=== PATIENT | female | born 1995 | race Native Hawaiian/Other Pacific Islander ===

== ENCOUNTER 2021-10-19 08:00 | Outpatient (CLI) | payer OTHER ==
--- NOTE | 2021-10-19 10:38 | XRAY Report ---
PROCEDURE: Chest 2 View X-Ray INDICATIONS: RIB PX TECHNIQUE: 2 view(s) of the chest. COMPARISON: None. FINDINGS: Surgical changes and devices: None. Lungs and pleura: No pleural effusions or pneumothorax. Lungs are clear. Mediastinum: Mediastinal contours are normal. Heart size is normal. Bones and chest wall: No suspicious bony abnormalities. Soft tissues appear unremarkable. IMPRESSION: No acute cardiopulmonary abnormality Reviewed by: Burak De Paz on 10/19/2021 10:36 AM PDT Approved by: Burak De Paz on 10/19/2021 10:36 AM PDT Station ID: [id number]
== END 2021-10-19 23:59 | disposition home or self-care (01) ==
LOC: DI.N 08:00
PROVIDERS: ATTEND Physician Assistant
DX: R07.81 Pleurodynia (principal)

== ENCOUNTER 2022-01-25 12:51 | Emergency (ER) | payer OTHER ==
[2022-01-25] MEDS ORDERED: METOCLOPRAMIDE 10 MG/2 ML VIAL IVP STA (13:13)
[2022-01-25] MEDS ORDERED: KETOROLAC 15 MG/ML VIAL IVP STA (13:14)
[2022-01-25] MEDS ORDERED: diphenhydrAMINE INJ 50 MG/ML VIAL IVP STA (13:14)
--- NOTE | 2022-01-25 13:16 | ED Physician Documentation ---
PD HPI HEADACHE - Stated complaint Stated Complaint: MIGRANE - Chief complaint Chief Complaint: Neuro - History obtained from History obtained from: Patient - Additional information Additional information: Previously healthy 26-year-old woman has been nauseous for the last couple of weeks. She wondered if she might be but took a test that was negative. Today she was sitting at her desk about 2 and half hours ago doing desk work and developed a gradual onset headache. She states it feels like her head was expanding within her skull. It is associated with light sensitivity, nausea and 1 episode of vomiting. It was gradual in onset over about an hour. She is never had a headache like this before no prior history of migraines. She denies fevers, chills, neck stiffness. Review of Systems Constitutional: denies: Fever, Chills Nose: reports: Reviewed and negative Throat: reports: Reviewed and negative Cardiac: reports: Reviewed and negative PD PAST MEDICAL HISTORY - Present Medications Home Medications: Ambulatory Orders Medication Instructions Recorded Confirmed SUMAtriptan [Imitrex] 25 mg PO BID PRN #10 tablet 01/25/22 - Allergies Allergies/Adverse Reactions: Allergies Allergy/AdvReac Type Severity Reaction Status Date / Time No Known Drug Allergies Allergy Verified 01/25/22 13:00 PD ED PE NORMAL - Vitals Vital signs reviewed: Yes - General General: Alert and oriented X 3, Other (She appears uncomfortable and light sensitive) - HEENT HEENT: PERRL, EOMI - Neck Neck: Supple, no meningeal sign, No bony TTP - Abdomen Abdomen: Normal bowel sounds, Soft, Non tender - Neuro Neuro: Alert and oriented X 3, 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, No motor deficit, No sensory de ficit, Normal speech Eye Opening: Spontaneous Motor: Obeys Commands Verbal: Oriented GCS Score: 15 Results - Vitals Vitals: Vital Signs - 24 hr 01/25/22 13:00 Temperature 36.5 C Heart Rate 68 Respiratory 16 Rate Blood Pressure 130/84 H O2 Saturation 98 Oxygen O2 Source Room air - Labs Labs: Laboratory Tests 01/25/22 13:24 Urine Color LIGHT YELLOW Urine Clarity CLEAR Urine pH 6.0 Ur Specific [place] 1.010 Urine Protein NEGATIVE Urine Glucose (UA) NEGATIVE Urine Ketones NEGATIVE Urine Occult Blood NEGATIVE Urine Nitrite NEGATIVE Urine Bilirubin NEGATIVE Urine Urobilinogen 0.2 (NORMAL) Ur Leukocyte Esterase NEGATIVE Ur Microscopic Review NOT INDICATED Urine Culture Comments NOT INDICATED Urine HCG, Qual NEGATIVE PD MEDICAL DECISION MAKING - ED course ED course: CT of the head is unremarkable interpreted contemporaneously by me. 26-year-old woman with headache that sounds migrainous, gradual in onset not associated with infectious symptoms. After the administration of IV Toradol, Benadryl, and Reglan she felt much better, declined further pain medication. Departure - Departure Disposition: 01 Home, Self Care Clinical Impression: Migraine Qualifiers: Migraine type: without aura Status migrainosus presence: without status migrainosus Intractability: not intractable Qualified Code(s): G43.009 - Migraine without aura, not intractable, without status migrainosus Condition: Good Record reviewed to determine appropriate education?: Yes Instructions: Imitrex, ED Headache Migraine Prescriptions: SUMAtriptan [Imitrex] 25 mg PO BID PRN #10 tablet PRN Reason: Headache Comments: You are seen today for a headache that sounded migrainous, but given the lack of history of prior migraines a CT was done and was normal. You improved with a migraine cocktail which included Toradol, Benadryl, and Reglan. Follow-up with your flight surgeon, next available appointment. Return for new or worsening symptoms. I am prescribing a medication for recurrent headaches if this becomes a recurrent problem (we hope it does not). Forms: Activity restrictions
[2022-01-25 13:49] LABS: BILIRUBIN,URINE NEGATIVE (NEGATIVE); GLUCOSE, URINE (UA) NEGATIVE (NEGATIVE); KETONES,URINE (UA) NEGATIVE (NEGATIVE); LEUKOCYTE ESTERASE, URINE NEGATIVE (NEGATIVE); NITRITE,URINE NEGATIVE (NEGATIVE); OCCULT BLOOD,URINE NEGATIVE (NEGATIVE); PROTEIN,URINE NEGATIVE (NEGATIVE); UROBILINOGEN,URINE 0.2 (NORMAL) E.U./dL (NORMAL)
[2022-01-25 13:54] LABS: CLARITY,URINE CLEAR (CLEAR); HCG UR QUAL NEGATIVE
--- NOTE | 2022-01-25 14:46 | CT Report ---
PROCEDURE: HEAD WO INDICATIONS: WHOL TECHNIQUE: Noncontrast 4.5 mm thick angled axial sections acquired from the foramen magnum to the vertex. For r adiation dose reduction, the following was used: automated exposure control, adjustment of mA and/or kV according to patient size. COMPARISON: None. FINDINGS: Image quality: Excellent. CSF spaces: Basal cisterns are patent. No extra-axial fluid collections. Ventricles are normal in size and shape. Brain: No midline shift. No intracranial masses or hemorrhage. Phan-white matter interface is norm al. Skull and face: Calvarium and visualized facial bones are intact, without suspicious lesions. Sinuses: Visualized sinuses and mastoids are clear. IMPRESSION: No acute intracranial abnormality. Reviewed by: Shira Thacker MD on 01/25/2022 2:44 PM PDT Approved by: Shira Thacker MD on 01/25/2022 2:44 PM PDT Station ID: [id number]
[2022-01-25 15:05] VITALS: BP 126/82
== END 2022-01-25 15:04 | disposition home or self-care (01) ==
LOC: ED 12:51
DX: G43.009 Migraine without aura, not intractable, without status migrainosus (principal)
CPT/HCPCS: 70450; 81003; 81025; 96374; 99284; J1200; J2765; 81001; 87086

== ENCOUNTER 2022-09-03 19:51 | Emergency (ER) | payer OTHER ==
--- NOTE | 2022-09-03 20:23 | ED Physician Documentation ---
PD HPI FEMALE - Stated complaint Stated Complaint: ABD PX - Chief complaint Chief Complaint: Abd Pain - History obtained from History obtained from: Patient - History of Present Illness OB-OPAL MINER History: G (2), P (1), Prior ectopic (1) - Additional information Additional information: HPI from patient. Patient is approximately 5 weeks . Patient states that, over the past hour, she has had 2 episodes of left lower quadrant/left hemipelvic pain which she describes as a cramping. There were no inciting factors nor circumstances, no exacerbating nor ameliorating factors. The pain waxes and wanes without such influences. This is her second , the first ended with ectopic . She denies nausea, vomiting, vaginal bleeding. Review of Systems Constitutional: denies: Fever GI: reports: Abdominal Pain. denies: Abdominal Swelling, Nausea, Vomiting : reports: Now EGA (5 weeks) PD PAST MEDICAL HISTORY - Past Medical History Past Medical History: Yes GI: Crohn's disease OPAL MINER: Ectopic - Present Medications Home Medications: Ambulatory Orders Medication Instructions Recorded Confirmed Adalimumab [Humira(Cf) Pediatric 80 mg SUBQ 09/03/22 Crohn's] - Allergies Allergies/Adverse Reactions: Allergies Allergy/AdvReac Type Severity Reaction Status Date / Time No Known Drug Allergies Allergy Verified 09/03/22 19:58 PD ED PE NORMAL - Vitals Vital signs reviewed: Yes - General General: Alert and oriented X 3, No acute distress, Well developed/nourished - Cardiac Cardiac: RRR, No murmur - Respiratory Respiratory: No respiratory distress, Clear bilaterally - Abdomen Abdomen: Soft, Non tender, Non distended - Back Back: No CVA TTP Results - Vitals Vitals: Vital Signs - 24 hr 09/03/22 09/03/22 09/03/22 19:54 21:54 23:00 Temperature 37.1 C 37.0 C Heart Rate 80 80 80 Respiratory 16 16 16 Rate Blood Pressure 114/77 112/76 110/72 O2 Saturation 100 100 100 Oxygen O2 Source Room air - Labs Labs: Laboratory Tests 09/03/22 09/03/22 09/03/22 20:11 20:50 20:50 WBC 7.8 RBC 4.22 Hgb 12.8 Hct 37.7 MCV 89.3 MCH 30.3 MCHC 34.0 RDW 12.3 Plt Count 334 MPV 9.1 Neut # (Auto) 3.4 Lymph # (Auto) 3.3 [place] # (Auto) 0.6 Eos # (Auto) 0.4 Baso # (Auto) 0.0 Absolute Nucleated RBC 0.00 Nucleated RBC % 0.0 Sodium 136 Potassium 3.7 Chloride 103 Carbon Dioxide 23 Anion Gap 10.0 BUN 11 Creatinine 0.7 Estimated GFR (MDRD) 101 Glucose 91 Calcium 9.5 Total Bilirubin 0.7 AST 15 ALT 13 Alkaline Phosphatase 36 L Total Protein 7.4 Albumin 4.2 Globulin 3.2 Albumin/Globulin Ratio 1.3 Lipase 41 HCG, Quant Urine Color YELLOW Urine Clarity CLEAR Urine pH 6.0 Ur Specific [place] 1.025 Urine Protein NEGATIVE Urine Glucose (UA) NEGATIVE Urine Ketones 15 H Urine Occult Blood SMALL H Urine Nitrite NEGATIVE Urine Bilirubin NEGATIVE Urine Urobilinogen 0.2 (NORMAL) Ur Leukocyte Esterase NEGATIVE Urine RBC 0-5 Urine WBC 0-3 Ur Squamous Epith Cells FEW Squamous Urine Bacteria Rare Urine Mucus Few Strands Ur Microscopic Review INDICATED Urine Culture Comments NOT INDICATED Blood Type 09/03/22 09/03/22 20:50 20:50 WBC RBC Hgb Hct MCV MCH MCHC RDW Plt Count MPV Neut # (Auto) Lymph # (Auto) [place] # (Auto) Eos # (Auto) Baso # (Auto) Absolute Nucleated RBC Nucleated RBC % Sodium Potassium Chloride Carbon Dioxide Anion Gap BUN Creatinine Estimated GFR (MDRD) Glucose Calcium Total Bilirubin AST ALT Alkaline Phosphatase Total Protein Albumin Globulin Albumin/Globulin Ratio Lipase HCG, Quant 331.42 Urine Color Urine Clarity Urine pH Ur Specific [place] Urine Protein Urine Glucose (UA) Urine Ketones Urine Occult Blood Urine Nitrite Urine Bilirubin Urine Urobilinogen Ur Leukocyte Esterase Urine RBC Urine WBC Ur Squamous Epith Cells Urine Bacteria Urine Mucus Ur Microscopic Review Urine Culture Comments Blood Type O POSITIVE - Rads (name of study) first trimester US Relevant Findings:: Prelim report reviewed, See rad report PD Medical Decision Making - ED course Complexity details: reviewed results, re-evaluated patient, considered differential, d/w patient ED course: Patient's quantitative hCG is only 331. The pelvic ultrasound is interpreted by the radiologist as " of unknown location. Recommend continued laboratory and sonographic follow-up". The radiologist notes "multiple left ovarian cysts. No discrete gestational sac." On reevaluation, I discussed the test results with the patient. She remains in no apparent distress. She says she is currently not having any discomfort. I discussed this case, including the blood tests and ultrasound findings, with the on-call PASSENGER VESSEL CHEF for [facility] (Dr. Henson). He recommends patient follow-up in outpatient setting, ideally have a repeat hCG quantitative in 2 days, and a repe at ultrasound in approximately 1 week. I relayed these recommendations to the patient. She says she is in the process of establishing with an PASSENGER VESSEL CHEF, she thinks a group in [place]. I provided her the information for Dr. Henson's practice, as well. Return precautions are discussed. Differential diagnosis includes, though not limited to, early normal , early ectopic . Departure - Departure Disposition: 01 Home, Self Care Clinical Impression: Pelvic pain during Condition: Good Instructions: ED Abdominal Pain Rule Out Ectopic Follow-Up: Mark Henson MD [Provider Admit Priv/Credential] - Comments: The pelvic ultrasound performed lenny did not show any evidence of . However, as we discussed, the blood test of the hormone level (hCG) was quite low; With this low of a hormone level, evidence of and ultrasound would not be expected to be seen. This presents a conundrum, and that it is still possible that the is in an ectopic location (such as in a fallopian tube). Or, of course, the might be an intrauterine (normal location for a ). I discussed your case with the on-call PASSENGER VESSEL CHEF (Dr. Henson). You will need some expedited follow-up for retesting in this particular scenario. Specifically, a repeat blood test for the hCG level in 2 or 3 days, and a repeat ultrasound in a week. I recommend that you contact your PASSENGER VESSEL CHEF soon as their office opens to arrange for immediate appointment; mention your ED visit as well as the recommendations that were made on this visit. Also consider contacting your primary care provider with this information, as they might feel comfortable ordering these tests themselves. You can also try to follow-up with Dr. Henson; I have provided his office information elsewhere on these discharge sheets. You should return to the emergency department at any time that you get increasing pain, or if you develop other concerning signs/symptoms, such as vaginal bleeding, fever, severe abdominal or pelvic pain. For your information/records, your blood type is O+. Lenny's HCG result was 331 Discharge Date/Time: 09/03/22 23:13
[2022-09-03 20:28] LABS: BILIRUBIN,URINE NEGATIVE (NEGATIVE); GLUCOSE, URINE (UA) NEGATIVE (NEGATIVE); KETONES,URINE (UA) 15 mg/dL (NEGATIVE); LEUKOCYTE ESTERASE, URINE NEGATIVE (NEGATIVE); NITRITE,URINE NEGATIVE (NEGATIVE); OCCULT BLOOD,URINE SMALL (NEGATIVE); PROTEIN,URINE NEGATIVE (NEGATIVE); UROBILINOGEN,URINE 0.2 (NORMAL) E.U./dL (NORMAL)
[2022-09-03 20:31] LABS: CLARITY,URINE CLEAR (CLEAR)
[2022-09-03 20:42] LABS: BACTERIA,URINE Rare /HPF (None Seen); MUCUS,URINE Few Strands; RBC,URINE 0-5 /HPF (0-5); SQUAMOUS EPITHELIAL CELL,UR FEW Squamous (<= Few); WBC,URINE 0-3 /HPF (0-5)
[2022-09-03 21:07] LABS: BASOPHILS % (AUTO) 0.5 %; EOSINOPHILS # (AUTO) 0.4 10^3/uL (0.0-0.7); EOSINOPHILS % (AUTO) 4.6 %; HCT - HEMATOCRIT 37.7 % (37.0-47.0); HGB - HEMOGLOBIN 12.8 g/dL (12.0-16.0); LYMPHOCYTES # (AUTO) 3.3 10^3/uL (1.5-3.5); LYMPHOCYTES % (AUTO) 42.4 %; MEAN CORPUSCULAR HEMOGLOBIN 30.3 pg (27.0-31.0); MEAN CORPUSCULAR VOLUME 89.3 fL (81.0-99.0); MEAN PLATELET VOLUME 9.1 fL (7.9-10.8); MONOCYTES # (AUTO) 0.6 10^3/uL (0.0-1.0); NEUTROPHILS # (AUTO) 3.4 10^3/uL (1.5-6.6); NEUTROPHILS % (AUTO) 44.2 %; PLT - PLATELET COUNT 334 10^3/uL (130-450); RED BLOOD COUNT 4.22 10^6/uL (4.20-5.40); RED CELL DISTRIBUTION WIDTH 12.3 % (12.0-15.0); WHITE BLOOD COUNT 7.8 x10^3/uL (4.8-10.8)
[2022-09-03 21:20] LABS: ALBUMIN 4.2 g/dL (3.2-5.5); ALBUMIN/GLOBULIN RATIO 1.3 (1.0-2.2); BILIRUBIN,TOTAL 0.7 mg/dL (0.2-1.0); CALCIUM 9.5 mg/dL (8.5-10.3); CREATININE 0.7 mg/dL (0.4-1.0); POTASSIUM 3.7 mmol/L (3.5-5.0); TOTAL PROTEIN 7.4 g/dL (6.7-8.2)
--- NOTE | 2022-09-03 22:25 | Ultrasound Report ---
PROCEDURE: OB First Trimester INDICATIONS: , pelvic pain OUTSIDE/PRIOR DATING DATA: Last menstrual period (LMP): 08/05/2022. LMP-based estimated date of delivery (WANDA): 05/12/2023. TECHNIQUE: Real-time scanning was performed of the fetus and maternal pelvic organs, with image documentation. COMPARISON: None FINDINGS: No pole is seen. Multiple left ovarian cysts. No discrete gestational sac. IMPRESSION: of unknown location. Recommend continued laboratory and sonographic follow-up. Reviewed by: Abel Lemos MD on 09/03/2022 10:24 PM PDT Approved by: Abel Lemos MD on 09/03/2022 10:24 PM PDT Station ID: [id number]
[2022-09-03 23:13] VITALS: BP 110/72
== END 2022-09-03 23:13 | disposition home or self-care (01) ==
LOC: ED 19:51
DX: O26.891 Other specified pregnancy related conditions, first trimester (principal); R10.2 Pelvic and perineal pain; Z3A.01 Less than 8 weeks gestation of pregnancy
CPT/HCPCS: 36415; 80053; 81001; 81003; 83690; 84702; 85025; 86900; 86901; 87086; 99283; 99284

== ENCOUNTER 2023-02-16 19:58 | Outpatient (CLI) | payer OTHER ==
[2023-02-16 20:44] VITALS: BP 113/72
--- NOTE | 2023-02-16 21:12 | PROVIDER PROGRESS NOTE ---
- HPI Chief Complaint: Decreased movement Current : presents with cramping and decreased movment. Crohn's and off Humira due to pharmacy issues. feels constipated. Passing small bloody stools. had been feeling otherwise well. does feel baby move now that she is here on the monitor. cramping was low now above uterus. also c/o some discharge. Current EDU 05/15/23 Gestation 27 Weeks and 3 Days 2 Para 0 Vital Signs Temperature 98.2 F 02/16/23 20:14 Heart Rate 94 02/16/23 20:14 Respiratory Rate 18 02/16/23 20:14 Blood Pressure 113/72 02/16/23 20:14 Temperature 98.2 F 02/16/23 20:14 Heart Rate 94 02/16/23 20:14 Respiratory Rate 18 02/16/23 20:14 Blood Pressure 113/72 02/16/23 20:14 O2 Saturation If not protocol: Oxygen Flow, liters/minute - Exam Appears well. no distress. abdomen soft. fundus not tender. a bit uncomfortable above it. extremities without edema. - Procedures OB Procedure Performed: NST Diagnosis/Indication for NST: Decreased movement NST Procedure: NST Procedure Start Date 02/16/23 Start Time 20:20 Stop Time 20:55 Vibroacoustic Stimulation Used No Patient States Movement Yes FHT reviewed. baseline 135. + acels. no decels. moderate variability. reactive. Service Date of procedure: 02/16/23 Findings: reactive nst - Plan Plan: urine sent for culture. vagina swabs sent for infection. discharge home. to see her GI doctor, Dr. Zheng tomorrow in [place]. talk with him about getting restarted on her Humira and what else she can do for cramping and to help her bowels move better. has clinic appt on Tuesday.
[2023-02-16 21:14] LABS: BILIRUBIN,URINE NEGATIVE (NEGATIVE); GLUCOSE, URINE (UA) NEGATIVE (NEGATIVE); KETONES,URINE (UA) NEGATIVE (NEGATIVE); LEUKOCYTE ESTERASE, URINE SMALL (NEGATIVE); NITRITE,URINE NEGATIVE (NEGATIVE); OCCULT BLOOD,URINE NEGATIVE (NEGATIVE); PH,URINE 6.5 PH (5.0-7.5); PROTEIN,URINE NEGATIVE (NEGATIVE); UROBILINOGEN,URINE 0.2 (NORMAL) E.U./dL (NORMAL)
[2023-02-16 21:22] LABS: BACTERIA,URINE Rare /HPF (None Seen); CLARITY,URINE HAZY (CLEAR); RBC,URINE 0-5 /HPF (0-5); SQUAMOUS EPITHELIAL CELL,UR FEW Squamous (<= Few); YEAST,URINE PRESENT
[2023-02-16 23:23] LABS: BACTERIAL VAGINOSIS DNA POSITIVE (NEGATIVE); CANDIDA GLABRATA DNA NEGATIVE (NEGATIVE); CANDIDA GROUP DNA POSITIVE (NEGATIVE); CANDIDA KRUSEI DNA NEGATIVE (NEGATIVE); TRICHOMONAS VAGINALIS DNA NEGATIVE (NEGATIVE)
[2023-02-17 00:39] LABS: CHLAMYDIA TRACHOMATIS DNA NEGATIVE (NEGATIVE); NEISSERIA GONORRHOEAE DNA NEGATIVE (NEGATIVE)
== END 2023-02-16 21:25 | disposition home or self-care (01) ==
LOC: WFO 19:58 → FBP 20:00 → WFO 21:25
PROVIDERS: ATTEND Obstetrics & Gynecology
DX: O36.8120 Decreased fetal movements, second trimester, not applicable or unspecified (principal); O99.612 Diseases of the digestive system complicating pregnancy, second trimester; K50.90 Crohn's disease, unspecified, without complications; Z3A.27 27 weeks gestation of pregnancy; K59.00 Constipation, unspecified; O99.891 Other specified diseases and conditions complicating pregnancy; R10.9 Unspecified abdominal pain
CPT/HCPCS: 59025; 81001; 81514; 87086; 87491; 87591; 87661; 99213; 99214

== ENCOUNTER 2023-02-25 08:09 | Outpatient (CLI) | payer OTHER ==
[2023-02-25 08:30] LABS: HCT - HEMATOCRIT 31.8 % (37.0-47.0); HGB - HEMOGLOBIN 10.7 g/dL (12.0-16.0); MEAN CORPUSCULAR HEMOGLOBIN 30.3 pg (27.0-31.0); MEAN CORPUSCULAR HGB CONC 33.6 g/dL (32.0-36.0); MEAN CORPUSCULAR VOLUME 90.1 fL (81.0-99.0); MEAN PLATELET VOLUME 9.8 fL (7.9-10.8); RED BLOOD COUNT 3.53 10^6/uL (4.20-5.40); RED CELL DISTRIBUTION WIDTH 13.9 % (12.0-15.0); WHITE BLOOD COUNT 11.7 x10^3/uL (4.8-10.8)
[2023-02-25 08:42] LABS: GTT GLUCOSE,FASTING 102 mg/dL (74-109)
== END 2023-02-25 08:10 | disposition home or self-care (01) ==
LOC: LAB 08:09
PROVIDERS: ATTEND Obstetrics & Gynecology
DX: O99.613 Diseases of the digestive system complicating pregnancy, third trimester (principal); K50.90 Crohn's disease, unspecified, without complications; Z3A.28 28 weeks gestation of pregnancy
CPT/HCPCS: 36415; 82951; 85027; 86850

== ENCOUNTER 2023-03-08 15:54 | Outpatient (CLI) | payer OTHER ==
--- NOTE | 2023-03-09 18:33 | Ultrasound Report ---
PROCEDURE: OB F/U or Repeat INDICATIONS: CROHNS IN OUTSIDE/PRIOR DATING DATA: Last menstrual period (LMP): 08/08/2022. LMP-based estimated date of delivery (WANDA): 05/15/2023. First dating scan (date and location): 10/13/2022. Estimated date of delivery (WANDA) from first dating scan: 05/15/2023. The below data below was generated using the ultrasound and clinical WANDA of 05/15/2023 TECHNIQUE: Real-time scanning was performed of the fetus, with image documentation and biometric measurements. Endovaginal scanning: Not performed. COMPARISON: 09/03/2022 FINDINGS: General: A single living intrauterine gestation is present. Presentation: Vertex Placenta: Placental position is posterior, without previa. Amniotic fluid index: 17.6 cm, within normal limits for gestational age. heart rate: 140 beats per minute. Maternal cervical canal: Greater than 5 cm long; normal length is 2.5 cm or more. biometrics: Biparietal diameter: 8.09 cm, 32 weeks 3 days Head circumference: 29.9 cm, 33 weeks 1 day Abdominal circumference: 28.5 cm, 32 weeks 4 days Femur length: 6.08 cm, 31 weeks 4 days Estimated gestational age from initial scan: 30 weeks 2 days Composite gestational age from present scan: 32 weeks 3 days Estimated weight and percentile: 1945.5 g, 94.8 percentile Measurement variability in biometric dating: +/- 10 days from 12-20 weeks gestation, +/- 2 weeks from 20-30 weeks gestation, +/- 3 weeks at 30 weeks gestation or more. Other: Not applicable. IMPRESSION: 1. Living third trimester intrauterine with no sonographic evidence of complications. 2. Current ultrasound age is 13 days greater than clinical age based on LMP and initial first trimest er ultrasound. Reviewed by: Manjit Raygoza MD on 03/09/2023 6:32 PM PDT Approved by: Manjit Raygoza MD on 03/09/2023 6:32 PM PDT Station ID: [id number]
== END 2023-03-08 15:55 | disposition home or self-care (01) ==
LOC: DI 15:54
PROVIDERS: ATTEND Nurse Practitioner Obstetrics & Gynecology
DX: O99.613 Diseases of the digestive system complicating pregnancy, third trimester (principal); Z3A.32 32 weeks gestation of pregnancy; K50.90 Crohn's disease, unspecified, without complications

== ENCOUNTER 2023-03-09 10:33 | Outpatient (CLI) | payer OTHER ==
[2023-03-09 11:16] LABS: BILIRUBIN,URINE NEGATIVE (NEGATIVE); GLUCOSE, URINE (UA) NEGATIVE (NEGATIVE); KETONES,URINE (UA) NEGATIVE (NEGATIVE); LEUKOCYTE ESTERASE, URINE SMALL (NEGATIVE); NITRITE,URINE NEGATIVE (NEGATIVE); OCCULT BLOOD,URINE TRACE-INTA (NEGATIVE); PH,URINE 6.5 PH (5.0-7.5); PROTEIN,URINE NEGATIVE (NEGATIVE); UROBILINOGEN,URINE 0.2 (NORMAL) E.U./dL (NORMAL)
--- NOTE | 2023-03-09 11:23 | PROVIDER PROGRESS NOTE ---
- HPI Chief Complaint: Leakage of vaginal fluid (Patient is a G2, P0 presenting at 30 weeks with leakage of fluid. She noticed some leakage last night and and over the last 2 days. She has not had to wear a pad. Positive movement. Denies vaginal bleeding. Denies contractions. is complicated by Crohn's disease for which she ta) Current : Vital Signs Temperature 98.1 F 03/09/23 10:50 Temperature 98.1 F 03/09/23 10:50 Heart Rate Respiratory Rate Blood Pressure O2 Saturation If not protocol: Oxygen Flow, liters/minute - Exam Speculum exam: +yeast and discharge. Cervix is closed, with no leakage of fluid. Nitrazine negative. Vaginal swabs sent. - Procedures OB Procedure Performed: NST Diagnosis/Indication for NST: Gestational Diabetes (leakage of fluid) NST Procedure: NST Procedure Start Time 20:20 Stop Time 20:55 30 weeks, gestational diabetes, Crohn's, leakage of fluid 140, moderate variability, +accels, no decels reactive NST - Plan Plan: Swabs sent for vaginal infection, will follow up No evidence of leakage of fluid. wellbeing is reassuring.
[2023-03-09 11:26] LABS: BACTERIA,URINE Few /HPF (None Seen); CLARITY,URINE CLEAR (CLEAR); RBC,URINE None Seen /HPF (0-5); SQUAMOUS EPITHELIAL CELL,UR FEW Squamous (<= Few)
[2023-03-09 11:37] LABS: RUPTURE OF MEMBRANES PLUS NEGATIVE (NEGATIVE)
[2023-03-09 15:15] LABS: CHLAMYDIA TRACHOMATIS DNA NEGATIVE (NEGATIVE); NEISSERIA GONORRHOEAE DNA NEGATIVE (NEGATIVE)
[2023-03-09 18:52] LABS: BACTERIAL VAGINOSIS DNA POSITIVE (NEGATIVE); CANDIDA GLABRATA DNA NEGATIVE (NEGATIVE); CANDIDA GROUP DNA POSITIVE (NEGATIVE); CANDIDA KRUSEI DNA NEGATIVE (NEGATIVE); TRICHOMONAS VAGINALIS DNA NEGATIVE (NEGATIVE)
== END 2023-03-09 12:00 | disposition home or self-care (01) ==
LOC: WFO 10:33 → FBP 10:34 → WFO 12:00
PROVIDERS: ATTEND Obstetrics & Gynecology Obstetrics
DX: O99.891 Other specified diseases and conditions complicating pregnancy (principal); N89.8 Other specified noninflammatory disorders of vagina; O99.613 Diseases of the digestive system complicating pregnancy, third trimester; K50.90 Crohn's disease, unspecified, without complications; O24.419 Gestational diabetes mellitus in pregnancy, unspecified control; Z3A.30 30 weeks gestation of pregnancy
CPT/HCPCS: 81001; 81514; 84112; 87086; 87491; 87591; 87661; 99215

== ENCOUNTER 2023-03-14 18:05 | Outpatient (CLI) | payer OTHER ==
[2023-03-14 18:39] VITALS: BP 120/78
--- NOTE | 2023-03-14 19:07 | PROVIDER PROGRESS NOTE ---
- HPI Chief Complaint: Fall Current : Vital Signs Temperature 98.2 F 03/14/23 18:36 Heart Rate 99 03/14/23 18:36 Respiratory Rate 18 03/14/23 18:36 Blood Pressure 120/78 03/14/23 18:36 Temperature 98.2 F 03/14/23 18:36 Heart Rate 99 03/14/23 18:36 Respiratory Rate 18 03/14/23 18:36 Blood Pressure 120/78 03/14/23 18:36 O2 Saturation If not protocol: Oxygen Flow, liters/minute - Procedures OB Procedure Performed: NST Diagnosis/Indication for NST: Decreased movement NST Procedure: NST Procedure Start Time 19:20 Stop Time 19:40 Service Date of procedure: 03/14/23 (Read 03/14/23) - Plan Plan: Patient is a 27-year-old G1, P0 at 31 weeks gestation who presents today after doing a "tuck and roll" onto her bed from standing. She says she is worried as her bed is kind of firm. She says she landed on her left side, but was worried as baby seem to move less after the fall. Initially she had some cramping in the left, but this has resolved. No leaking or bleeding. Currently feels good movement. No contractions. Physical Exam Constitutional: alert, no acute distress, well hydrated, well developed, well nourished, appropriate dress. Cardiovascular: Regular rate and rhythm. Respiratory: no respiratory distress. Abdomen: Gravid, nondistended, no guarding. No erythema, abrasions, pain. Psych: affect and mood appropriate, normal interaction, good eye contact. FHT: 135 beats per baseline, moderate variability, accelerations present, no decelerations. Reactive NST [place]: Quiescent Assessment and plan Fall: Very low likelihood that this type of injury caused a problem. No direct abdominal trauma and no signs of trauma on her abdomen. 1 hour of no activity on the tocometer. Offered her to stay for 4 hours, but patient says she is comfortable and reassured after good movement and reactive tracing. Discussed bleeding, contractions, membrane rupture and that if she develops any symptoms, she should return for evaluation. Discussed that the first 24 hours is the greatest period of issue after trauma, but again after the low likelihood of injury from this kind of fall, she is likely okay. Decreased movement -Reactive NST. Good movement upon arrival.
== END 2023-03-14 19:26 | disposition home or self-care (01) ==
LOC: WFO 18:05 → FBP 18:07 → WFO 19:26
PROVIDERS: ATTEND Obstetrics & Gynecology
DX: O36.8130 Decreased fetal movements, third trimester, not applicable or unspecified (principal); W18.30XA Fall on same level, unspecified, initial encounter; Z3A.31 31 weeks gestation of pregnancy
CPT/HCPCS: 59025; 99213

== ENCOUNTER 2023-04-11 13:13 | Outpatient (CLI) | payer OTHER ==
[2023-04-11 13:32] VITALS: BP 121/72
--- NOTE | 2023-04-11 14:04 | PROCEDURE REPORT ---
- HPI Diagnosis/Indication for NST: Gestational Diabetes Vital Signs Temperature 99.1 F 04/11/23 13:19 Heart Rate 106 H 04/11/23 13:19 Respiratory Rate 20 04/11/23 13:19 Blood Pressure 121/72 04/11/23 13:19 Temperature 99.1 F 04/11/23 13:19 Heart Rate 106 H 04/11/23 13:19 Respiratory Rate 20 04/11/23 13:19 Blood Pressure 121/72 04/11/23 13:19 O2 Saturation If not protocol: Oxygen Flow, liters/minute - NST Procedure NST Procedure Start Time 18:14 Stop Time 19:21 130 mod toy + A cells no D cells reactive. - Results and Plan Findings/Impression: reactive NST Plan: reactive NST continue scheduled ANC precautions reviewed through nurses.
[2023-04-11 14:40] VITALS: O2SAT 99
== END 2023-04-11 13:53 | disposition home or self-care (01) ==
LOC: WFO 13:13 → FBP 13:14 → WFO 13:53
PROVIDERS: ATTEND Obstetrics & Gynecology
DX: O24.419 Gestational diabetes mellitus in pregnancy, unspecified control (principal)
CPT/HCPCS: 59025

== ENCOUNTER 2023-04-14 07:06 | Outpatient (CLI) | payer OTHER ==
--- NOTE | 2023-04-14 12:43 | Ultrasound Report ---
PROCEDURE: OB Biophysical Profile INDICATIONS: GESTATIONAL DIABETES OUTSIDE/PRIOR DATING DATA: Last menstrual period (LMP): 08/08/2022. LMP-based estimated date of delivery (WANDA): 05/15/2023. First dating scan (date and location): 10/13/2022. Estimated date of delivery (WANDA) from first dating scan: 05/15/2023. The below data below was generated using the clinical WANDA of 05/15/2023 TECHNIQUE: Real-time scanning was performed of the fetus, with image documentation. Biophysical pro file was also obtained. Endovaginal scanning: Not performed. COMPARISON: None. FINDINGS: General: A single living intrauterine gestation is present. Presentation: Vertex Placenta: Placental position is posterior, without previa. Amniotic fluid index: 19 cm, normal for gestational age. heart rate: 140 beats per minute. Maternal cervical canal not imaged. Biophysical profile: Tone: 2 points. Movement: 2 points. Respiration: 2 points. Largest pocket of fluid: 2 points. Umbilical artery Doppler: Normal waveform. IMPRESSION: Single living intrauterine at 35 weeks 4 days, WANDA of 05/15/2023. BPP 8 of 8. Normal umbilical artery waveform. Reviewed by: Alphonse Chung on 04/14/2023 12:41 PM PST Approved by: Alphonse Chung on 04/14/2023 12:41 PM PST Station ID: [id number]
== END 2023-04-14 07:07 | disposition home or self-care (01) ==
LOC: DI 07:06
PROVIDERS: ATTEND Obstetrics & Gynecology
DX: O24.419 Gestational diabetes mellitus in pregnancy, unspecified control (principal); Z3A.35 35 weeks gestation of pregnancy

== ENCOUNTER 2023-04-14 07:40 | Outpatient (CLI) | payer OTHER ==
[2023-04-14 08:02] VITALS: BP 122/74
--- NOTE | 2023-04-14 10:58 | PROCEDURE REPORT ---
- HPI Diagnosis/Indication for NST: Gestational Hypertension Current EDU 05/15/23 Gestation 35 Weeks and 4 Days 2 Para 0 Vital Signs Temperature 98.2 F 04/14/23 07:55 Heart Rate 98 04/14/23 07:55 Respiratory Rate 18 04/14/23 07:55 Blood Pressure 122/74 04/14/23 07:55 Temperature 98.2 F 04/14/23 07:55 Heart Rate 98 04/14/23 07:55 Respiratory Rate 18 04/14/23 07:55 Blood Pressure 122/74 04/14/23 07:55 O2 Saturation If not protocol: Oxygen Flow, liters/minute - NST Procedure NST Procedure Start Date 04/14/23 Start Time 07:52 Stop Time 08:23 Vibroacoustic Stimulation Used No - Results and Plan Plan: Patient is a 27-year-old -0-1-0 at 35 weeks 4 days gestation here for scheduled NST. NST Performed 04/14/2023 NST Read 04/14/2023 FHT: 125 bpm baseline, moderate variability, accelerations present, no decelerations. Reactive NST [place]: Quiescent Diagnosis 35 weeks gestation Gestational diabetes Continue with twice-weekly NST.
== END 2023-04-14 08:33 | disposition home or self-care (01) ==
LOC: FBP 07:40 → WFO 07:40
PROVIDERS: ATTEND Obstetrics & Gynecology
DX: O24.419 Gestational diabetes mellitus in pregnancy, unspecified control (principal); O13.3 Gestational [pregnancy-induced] hypertension without significant proteinuria, third trimester; Z3A.35 35 weeks gestation of pregnancy
CPT/HCPCS: 59025

== ENCOUNTER 2023-04-18 10:15 | Outpatient (CLI) | payer OTHER ==
[2023-04-18 10:53] VITALS: BP 110/73
--- NOTE | 2023-04-18 11:24 | PROCEDURE REPORT ---
- HPI Diagnosis/Indication for NST: Gestational Diabetes Vital Signs Temperature 97.5 F L 04/18/23 10:30 Heart Rate 107 H 04/18/23 10:30 Respiratory Rate 16 04/18/23 10:30 Blood Pressure 110/73 04/18/23 10:30 Temperature 97.5 F L 04/18/23 10:30 Heart Rate 107 H 04/18/23 10:30 Respiratory Rate 16 04/18/23 10:30 Blood Pressure 110/73 04/18/23 10:30 O2 Saturation If not protocol: Oxygen Flow, liters/minute - NST Procedure NST Procedure Start Time 07:52 Stop Time 08:23 NST reviewed. moderate variability. + acels. no decels. baseline 140 - Results and Plan Findings/Impression: reactive NST Plan: care as scheduled.
== END 2023-04-18 11:10 | disposition home or self-care (01) ==
LOC: FBP 10:15 → WFO 10:15
PROVIDERS: ATTEND Obstetrics & Gynecology
DX: O24.419 Gestational diabetes mellitus in pregnancy, unspecified control (principal)
CPT/HCPCS: 59025

== ENCOUNTER 2023-04-19 08:00 | Outpatient (CLI) | payer OTHER | END 2023-04-19 23:59 | disposition home or self-care (01) | LOC: LAB 08:00 | PROVIDERS: ATTEND Nurse Practitioner | DX: Z36.85 Encounter for antenatal screening for Streptococcus B (principal) | CPT/HCPCS: 87797 ==

== ENCOUNTER 2023-04-21 08:38 | Outpatient (CLI) | payer OTHER ==
[2023-04-21 08:58] VITALS: BP 118/77; O2SAT 98
--- NOTE | 2023-04-21 10:44 | PROCEDURE REPORT ---
- HPI Diagnosis/Indication for NST: Gestational Diabetes Current EDU 05/15/23 Gestation 36 Weeks and 4 Days 2 Para 0 Vital Signs Temperature 97.5 F L 04/21/23 08:47 Heart Rate 118 H 04/21/23 08:47 Respiratory Rate 18 04/21/23 08:47 Blood Pressure 118/77 04/21/23 08:47 O2 Saturation 98 04/21/23 08:47 Temperature 97.5 F L 04/21/23 08:50 Heart Rate 118 H 04/21/23 08:47 Respiratory Rate 18 04/21/23 08:47 Blood Pressure 118/77 04/21/23 08:47 O2 Saturation 98 04/21/23 08:47 If not protocol: Oxygen Flow, liters/minute - NST Procedure NST Procedure Start Date 04/21/23 Start Time 08:44 Stop Time 09:23 Vibroacoustic Stimulation Used No 120 mod toy + A cells no D cells reactive - Results and Plan Findings/Impression: reactive NST Plan: OK to D/C home and also to U/S continue scheduled ANC
== END 2023-04-21 09:25 | disposition home or self-care (01) ==
LOC: WFO 08:38 → FBP 08:39 → WFO 09:25
PROVIDERS: ATTEND Obstetrics & Gynecology
DX: O24.419 Gestational diabetes mellitus in pregnancy, unspecified control (principal); O26.843 Uterine size-date discrepancy, third trimester; Z3A.36 36 weeks gestation of pregnancy
CPT/HCPCS: 59025

== ENCOUNTER 2023-04-21 09:28 | Outpatient (CLI) | payer OTHER ==
--- NOTE | 2023-04-21 11:35 | Ultrasound Report ---
PROCEDURE: OB F/U or Repeat INDICATIONS: GESTAIONAL DIABETES, UTERINE SIZE DATE DISCREPENC OUTSIDE/PRIOR DATING DATA: Last menstrual period (LMP): 08/08/2022. LMP-based estimated date of delivery (WANDA): 05/15/2023. First dating scan (date and location): 09/15/2022. Estimated date of delivery (WANDA) from first dating scan: 05/15/2023. The below data below was generated using the clinical WANDA of 05/15/2023 TECHNIQUE: Real-time scanning was performed of the fetus, with image documentation and biometric measurements. Endovaginal scanning: Not performed. COMPARISON: Ultrasound 04/14/2023 FINDINGS: General: A single living intrauterine gestation is present. Presentation: Vertex Placenta: Placental position is posterior, without previa. Amniotic fluid index: 15.2 cm, within normal limits for gestational age. heart rate: 167 beats per minute. Maternal cervical canal: Not identified biometrics: Biparietal diameter: 9.2 cm, 37 weeks 1 day, 77% Head circumference: 32.6 cm, 37 weeks 0 days, 31% Abdominal circumference: 33.5 cm, 37 weeks 3 days, 83% Femur length: 7.2 cm, 37 weeks 0 days, 61% Estimated gestational age from initial scan: 36 weeks 4 days Composite gestational age from present scan: 37 weeks 1 day Estimated weight and percentile: 3157 g, 72nd percentile Measurement variability in biometric dating: +/- 10 days from 12-20 weeks gestation, +/- 2 weeks from 20-30 weeks gestation, +/- 3 weeks at 30 weeks gestation or more. Biophysical profile: Tone: 2 points. Movement: 2 points. Respiration: 2 points. Largest pocket of fluid: 2 points. Umbilical artery Doppler: 2.12 - 2.94. Other: Not applicable. IMPRESSION: 1.Single live intrauterine consistent with 37 weeks and 1 day. 2.Normal biophysical profile. Umbilical cord SD ratios range from 2.12-2.94. Reviewed by: Duncan Morrell MD on 04/21/2023 11:33 AM PST Approved by: Duncan Morrell MD on 04/21/2023 11:33 AM PST Station ID: [id number]
--- NOTE | 2023-04-21 11:41 | Ultrasound Report ---
PROCEDURE: OB Biophysical Profile INDICATIONS: GESTAIONAL DIABETES, UTERINE SIZE DATE DISCREPENC OUTSIDE/PRIOR DATING DATA: Last menstrual period (LMP): 08/08/2022. LMP-based estimated date of delivery (WANDA): 05/15/2023. First dating scan (date and location): 09/15/2022. Estimated date of delivery (WANDA) from first dating scan: 05/15/2023. The below data below was generated using the clinical WANDA of 05/15/2023 TECHNIQUE: Real-time scanning was performed of the fetus, with image documentation and biometric measurements. Endovaginal scanning: Not performed. COMPARISON: Ultrasound 04/14/2023 FINDINGS: General: A single living intrauterine gestation is present. Presentation: Vertex Placenta: Placental position is posterior, without previa. Amniotic fluid index: 15.2 cm, within normal limits for gestational age. heart rate: 167 beats per minute. Maternal cervical canal: Not identified biometrics: Biparietal diameter: 9.2 cm, 37 weeks 1 day, 77% Head circumference: 32.6 cm, 37 weeks 0 days, 31% Abdominal circumference: 33.5 cm, 37 weeks 3 days, 83% Femur length: 7.2 cm, 37 weeks 0 days, 61% Estimated gestational age from initial scan: 36 weeks 4 days Composite gestational age from present scan: 37 weeks 1 day Estimated weight and percentile: 3157 g, 72nd percentile Measurement variability in biometric dating: +/- 10 days from 12-20 weeks gestation, +/- 2 weeks from 20-30 weeks gestation, +/- 3 weeks at 30 weeks gestation or more. Biophysical profile: Tone: 2 points. Movement: 2 points. Respiration: 2 points. Largest pocket of fluid: 2 points. Umbilical artery Doppler: 2.12 - 2.94. Other: Not applicable. IMPRESSION: 1.Single live intrauterine consistent with 37 weeks and 1 day. 2.Normal biophysical profile. Reviewed by: Duncan Morrell MD on 04/21/2023 11:40 AM PST Approved by: Duncan Morrell MD on 04/21/2023 11:40 AM PST Station ID: [id number]
== END 2023-04-21 09:29 | disposition home or self-care (01) ==
LOC: DI 09:28
PROVIDERS: ATTEND Obstetrics & Gynecology
DX: O24.419 Gestational diabetes mellitus in pregnancy, unspecified control (principal); O26.843 Uterine size-date discrepancy, third trimester; Z3A.37 37 weeks gestation of pregnancy

== ENCOUNTER 2023-04-25 21:35 | Inpatient (IN) | payer OTHER ==
[2023-04-25] MEDS ORDERED: ACETAMINOPHEN 325 MG TABLET PO PRN (22:46)
[2023-04-25] MEDS ORDERED: OXYTOCIN/SODIUM CHLORIDE 500 ML IV PRN ×2 (22:46)
[2023-04-25] MEDS ORDERED: TRANEXAMIC ACID IN NACL 1,000 MG/100 ML BAG IV PRN (22:46)
[2023-04-25] MEDS ORDERED: ONDANSETRON ODT 4 MG TABLET TL PRN (22:46)
[2023-04-25] MEDS ORDERED: CARBOPROST TROMETHAMINE 250 MCG/ML AMP IM PRN (22:46)
[2023-04-25] MEDS ORDERED: NIFEdipine 10 MG CAPSULE PO PRN (22:46)
[2023-04-25] MEDS ORDERED: hydrALAZINE INJ 20 MG/ML VIAL IVP PRN ×2 (22:46)
[2023-04-25] MEDS ORDERED: LABETALOL 20 MG/4 ML SYRINGE IVP PRN ×3 (22:46)
[2023-04-25] MEDS ORDERED: SODIUM CHLORIDE FLUSH 0.9% 10 ML SYRINGE IVP PRN (22:46)
[2023-04-25] MEDS ORDERED: OXYTOCIN 10 UNIT/ML VIAL IM PRN (22:46)
[2023-04-25] MEDS ORDERED: miSOPROStoL 200 MCG TABLET BC PRN (22:46)
[2023-04-25] MEDS ORDERED: METHYLERGONOVINE 0.2 MG/ML VIAL IM PRN (22:46)
[2023-04-25] MEDS ORDERED: ONDANSETRON 4 MG/2 ML VIAL IVP PRN (22:46)
[2023-04-25] MEDS ORDERED: lidocaine 1% 20 ML MDV ID PRN (22:46)
[2023-04-25] MEDS ORDERED: fentaNYL 100 MCG/2 ML VIAL IVP PRN (22:46)
[2023-04-25] MEDS ORDERED: AMPICILLIN 2 GM in SODIUM CHLORIDE 0.9% MINIBAG 100 ML IV ONE (22:46)
--- NOTE | 2023-04-25 23:04 | HISTORY & PHYSICAL EXAMINATION ---
Admit History - Visit Reason Visit Reason: Other (IOL 2'2 poorly controlled GDMA2, did not case picker her insulin, at 37w+) - : 2 Parity: 0 Care: positive: [facility] Risk/History: positive: Gestational diabetes, Other (non compliant with medications - did not case picker insulin. also has chron's and is on evaristo) Complications This : positive: Gestational diabetes, Other (crohns) Smoking Status: Former smoker - Mother's Labs Mother's Blood Type: positive: O Mother's RH: positive: Positive GBS: positive: Group B Strep Positive Rubella Status: positive: Immune - Other Maternal History Other Maternal History: 27yo @ 37&2 presents for IOL 2'2 poorly controlled GDM +FM, -VB, occ ctx, neg LOF LMP: 08/08/2022 WANDA by LMP: 05/15/2023 Final WANDA: 05/15/2023 GBS+ c/b: CROHN'S DISEASE - on [facility] evaristo, had a period mid dec - early feb where she didn't have evaristo, had a flair during that time and was seen in triage for absent FM. [ ] avoid Epis GESTATIONAL DIABETES: -- diagnosed at 30w, her 2h GTT was fasting -- 32w metformin 500mg QHS. Discussed insulin as gold standard of care, she has never used insulin before - concerned as nearly 50% of fastings are above 95. <30% of post-prandials are elevated. 04/04: increase metformin to 1000QHS, discussed no sweet snacks - reviewed protein options. 04/18 insulin ordered but she never picked up. [X ] NSTs / BPPs have been done -- growth scan 03/08 - 1945g @ 30w 94.8%ile - HC> AC - order repeat growth scan at 37w - was still wnl, AC>HC though wnl. 04/21/23 72%ile. filomean 15. Pre- Weight: 169 BMI: 29.11 Blood type: O+ Antibody: negative CBC: PLT-350 HCT-32.6 HGB-11.3 RUB: immune VZV: immune HBsAg: negative HepC: negative RPR/AB-EIA: non-reactive HIV: negative PAP:COLPO 11/04- CIN1/HPV+ GC/CT: 02/16/2023 Negative HSV: denies self and partner Flu: Given 02/21/2023 RSV: today @ 34 weeks 04/04 FAS: Placenta: posterior Cord: 3VC FILOMENA: 16.7 EFW: 399g, 91%ile 50gm OGCT: 2HR: F:102 1hr: 196 2hr 114 3HR GTT: TDAP: given 02/21/23 Breast Pump: given 02/21 3rd trimester HGB 10.7 HCT 31.8 PLT 253 GBS:POSITIVE Delivery plan: epidural MOD: vaginal Contraception: considering ANL: O+/abneg/RI/RPRNR/HepBneg/HIVneg/GCCTnegneg/GBS ANC c/b: PMH: crohn's and ulcerative cholitis PSH: ectopic x1, colonoscopy, and laparoscopic cyst removal. POB: ectopic Meds: PNV, evaristo, metformin All: NKDA Soc: neg x3, lives with FOB Khanh who is here and supportive - HPI Current EDU 05/15/23 Gestation 37 Weeks and 1 Days 2 Vital Signs Temperature 98.4 F 04/25/23 21:55 Heart Rate 116 H 04/25/23 21:55 Respiratory Rate 16 04/25/23 21:55 Blood Pressure 109/78 04/25/23 21:55 Temperature 98.4 F 04/25/23 21:55 Heart Rate 116 H 04/25/23 21:55 Respiratory Rate 16 04/25/23 21:55 Blood Pressure 109/78 04/25/23 21:55 O2 Saturation If not protocol: Oxygen Flow, liters/minute - NST Procedure NST Procedure Start Time 10:27 Stop Time 11:00 Meds/Allgy - Home Medications Home Medications: Ambulatory Orders Medication Instructions Recorded Confirmed Adalimumab [Humira(Cf) Pediatric 80 mg SUBQ 09/03/22 Crohn's] - Allergies Allergies/Adverse Reactions: Allergies Allergy/AdvReac Type Severity Reaction Status Date / Time No Known Drug Allergies Allergy Verified 09/03/22 19:58 Review of Systems - Other Findings Other Findings: Denies: F/C/N/V/CP/SOB Denies: dizziness, weakness, lightheadedness, difficulty with ambulation, palpitations Denies: ARZATE / visual changes Physical - Abdominal Exam Vital Signs: Temp Pulse Resp BP Pulse Ox O2 Flow Rate 98.4 F 116 H 16 109/78 04/25/23 21:55 04/25/23 21:55 04/25/23 21:55 04/25/23 21:55 Contraction Frequency (min/apart): irregular Contraction Intensity: positive: Mild Uterine Resting Tone: positive: Soft - Monitoring Strip Review: positive: Category I - Presentation Presentation: positive: Vertex - Vaginal Exam Membranes: positive: Membranes intact Dilation (in cm): 2 Effacement (%): 0 Station: positive: -2 Cervical Position: positive: Midposition - Speculum Exam Speculum Exam Performed: positive: No (cervical exam per Dr. Horton and RN) Plan for Labor - Plan For Labor I expect patient to be DC'd or transferred within 96 hours.: No Plan for Labor: 27yo G P here at 37w2d for IOL secondary to poorly controlled GDMA2 FWB - cat 1, cEFM IOL - begin misoprostol - augment with pit when indicated GDMA2 - FSQ4h until active labor, then Q1h GBS+ - for Amp when active labor or ROM. Crohn's - avoid epis as much as possible - she will continue evaristo upon D/C as well. otherwise well FOB present and supportive
[2023-04-26] MEDS: miSOPROStoL 100 MCG TABLET VG SCH ×2 (00:08→05:08)
[2023-04-26 00:10] LABS: BASOPHILS % (AUTO) 0.3 %; EOSINOPHILS # (AUTO) 0.3 10^3/uL (0.0-0.7); EOSINOPHILS % (AUTO) 2.4 %; HCT - HEMATOCRIT 35.9 % (37.0-47.0); HGB - HEMOGLOBIN 12.2 g/dL (12.0-16.0); LYMPHOCYTES # (AUTO) 3.4 10^3/uL (1.5-3.5); LYMPHOCYTES % (AUTO) 28.7 %; MEAN CORPUSCULAR HEMOGLOBIN 30.6 pg (27.0-31.0); MEAN PLATELET VOLUME 10.9 fL (7.9-10.8); MONOCYTES # (AUTO) 1.1 10^3/uL (0.0-1.0); MONOCYTES % (AUTO) 9.2 %; NEUTROPHILS # (AUTO) 6.9 10^3/uL (1.5-6.6); PLT - PLATELET COUNT 267 10^3/uL (130-450); RED BLOOD COUNT 3.99 10^6/uL (4.20-5.40); RED CELL DISTRIBUTION WIDTH 14.6 % (12.0-15.0); WHITE BLOOD COUNT 11.9 x10^3/uL (4.8-10.8)
[2023-04-26] MEDS: LACTATED RINGERS 1,000 ML IV SCH ×3 (00:11→09:40)
[2023-04-26] MEDS ORDERED: AMPICILLIN 1 GM in SODIUM CHLORIDE 0.9% MINIBAG 100 ML IV SCH (02:00)
[2023-04-26] MEDS ORDERED: INSULIN LISPRO 300 UNIT/3 ML PEN SUBQ PRN (03:53)
[2023-04-26] MEDS ORDERED: LACTATED RINGERS 500 ML IV PRN (04:48)
[2023-04-26] MEDS: SODIUM CHLORIDE FLUSH 0.9% 10 ML SYRINGE IVP SCH (04:54)
[2023-04-26] MEDS ORDERED: OXYTOCIN/SODIUM CHLORIDE 500 ML IV PRN ×2 (05:06→15:58)
[2023-04-26 12:07] LABS: ESTIMATED AVERAGE GLUCOSE 126 mg/dL (70-100)
--- NOTE | 2023-04-26 12:22 | PROVIDER PROGRESS NOTE ---
Labor Progress Note - Uterine Monitoring Uterine Monitoring Mode: positive: External toco Contraction Frequency (min/apart): occasional Contraction Intensity: positive: Mild Uterine Resting Tone: positive: Soft - Monitoring Monitor Mode: positive: External ultrasound Heart Rate Variability: positive: Moderate (6-25 bmp) Accelerations: positive: Present, 15x15 Decelerations: positive: None Strip Review: positive: Category I - Vaginal Exam Dilation (in cm): 3 Effacement (%): 50 Station: -3 Cervical Position: Midposition - Labor Progress Note Labor Progress Note/Additional Text: Patient received one dose of misoprostol overnight, which the fetus tolerated well -- until prolonged bradycardia 4h after initial dose of miso. We could not give a second dose of misoprostol. We then waited an hour and were prepared to start pitocin for further induction, and fetus had another prolonged bradycardia that prevented the initiation of pitocin. in light of the full clinical picture: - poorly controlled GDMA2, and diagnosed late due to patient not doing the sugar test until 32w gestation, further exacerbated by not picking up insulin from the pharmacy -- so, a clear etiology of poor placental reserve - spontaneous prolonged bradycardias - remote from delivery Discussed with the patient - proceeding to C/S for intolerance to induction or attempting to use pitocin for induction. I do not recommend misoprostol for induction agent at this point, and discussed that both moving towards C/S now and attempting induction with pitocin are reasonable next steps. RBIdalia discussed in detail. pt prefers to move to 1LTCS. Pt took time to discuss this with her and as the baby is currently doing well. Pt prefers to move towards C/S due to intolerance of induction remote from delivery. RBA discussed, informed consent obtained.
[2023-04-26] MEDS ORDERED: ACETAMINOPHEN 500 MG TABLET PO ONE (12:24)
[2023-04-26] MEDS ORDERED: CITRIC ACID/SODIUM CITRATE 15 ML UDC PO ONE (12:24)
[2023-04-26] MEDS ORDERED: ceFAZolin (2G) 2 GM in SODIUM CHLORIDE 0.9% MINIBAG 100 ML IV ONE (12:24)
[2023-04-26] MEDS ORDERED: OXYTOCIN/SODIUM CHLORIDE 500 ML IV ONE (12:33)
[2023-04-26] MEDS ORDERED: ePHEDrine 50 MG/ML VIAL IVP ONE (12:33)
[2023-04-26] MEDS ORDERED: OXYTOCIN 10 UNIT/ML VIAL ONE (12:33)
[2023-04-26] MEDS ORDERED: fentaNYL 100 MCG/2 ML VIAL ONE (12:36)
[2023-04-26] MEDS ORDERED: MORPHINE PF 5 MG/10 ML VIAL ONE (12:36)
[2023-04-26] MEDS ORDERED: SODIUM CHLORIDE 0.9% 10 ML VIAL IVP ONE ×4 (13:02→14:01)
--- NOTE | 2023-04-26 13:09 | ANESTHESIA ---
Pre-Anesthesia VS, & Labs - Diagnosis intolerance to induction - Procedure Vital Signs: Temp Pulse Resp BP Pulse Ox O2 Flow Rate 36.8 C 94 16 112/80 98 04/26/23 09:00 04/26/23 09:00 04/26/23 09:00 04/26/23 09:00 04/26/23 09:00 Height: 5 ft 4 in Weight (kg): 92.805 kg Body Mass Index: 35.1 BMI Classification: Obese - NPO Last Fluid Intake: t/o day - Is Patient ?: Yes - Lab Results Current Lab Results: Laboratory Tests 04/26/23 12:28: POC Whole Bld Glucose 79 04/26/23 08:50: POC Whole Bld Glucose 102 H 04/26/23 04:42: POC Whole Bld Glucose 115 H 04/26/23 01:46: POC Whole Bld Glucose 167 H 04/25/23 23:59: Estimat Average Glucose 126 H, Hemoglobin A1c % 6.0 04/25/23 23:59: WBC 11.9 H, RBC 3.99 L, Hgb 12.2, Hct 35.9 L, MCV 90.0, MCH 30. 6, MCHC 34.0, RDW 14.6, Plt Count 267, MPV 10.9 H, Neut # (Auto) 6.9 H, Lymph # (Auto) 3.4, Coffey # (Auto) 1.1 H, Eos # (Auto) 0.3, Baso # (Auto) 0.0, Absolute Nucleated RBC 0.00, Nucleated RBC % 0.0 04/25/23 23:59: Blood Type O POSITIVE, Antibody Screen NEGATIVE 04/25/23 22:56: POC Whole Bld Glucose 95 Lab results reviewed: Yes Fish Bones: 04/25/23 23:59 Home Medications and Allergies Active Medications Acetaminophen (Acetaminophen 325 Mg Tablet) 650 mg PO Q6H PRN PRN Reason: Mild Pain or Fever>38C(100.4F) Carboprost Tromethamine (Carboprost Tromethamine 250 Mcg/Ml Amp) 250 mcg IM Q15M PRN PRN Reason: Step 4: Hemorrhage protocol Stop: 04/30/23 22:47 Fentanyl (Fentanyl 100 Mcg/2 Ml Vial) 50 mcg IVP Q1H PRN PRN Reason: Severe Pain (Level 7-10) Hydralazine HCl (Hydralazine Inj 20 Mg/Ml Vial) 5 - 20 mg IVP Q20M PRN; Protocol PRN Reason: SBP >160 or DBP >110 Hydralazine HCl (Hydralazine Inj 20 Mg/Ml Vial) 10 mg IVP .ONCE PRN; Protocol PRN Reason: Step 9 of Labetalol protocol Stop: 04/30/23 22:50 Tranexamic Acid (Tranexamic 1,000 Mg/100ml-Nacl) 1,000 mg in 100 mls @ 600 mls/hr IV .ONCE PRN PRN Reason: EBL >1200mL and within 3hr Stop: 04/30/23 22:47 Ampicillin Sodium 1 gm/ Sodium (Chloride) 100 mls @ 200 mls/hr IV Q4H JONATHAN Oxytocin/Sodium Chloride (Pitocin/Sodium Chloride) 500 mls @ 999 mls/hr IV PRN PRN; Protocol PRN Reason: POST- HEMORR PREVENTION Lactated Ringer's (Lr) 1,000 mls @ 100 mls/hr IV .Q10H JONATHAN Last Admin: 04/26/23 09:40 Dose: 100 mls/hr Lactated Ringer's (Lr) 500 mls @ 999 mls/hr IV ONCE PRN PRN Reason: Bradycardia Stop: 05/03/23 04:47 Last Infusion: 04/26/23 04:11 Dose: Infused Oxytocin/Sodium Chloride (Pitocin/Sodium Chloride) 500 mls @ 0 mls/hr IV PRN PRN; Protocol PRN Reason: PER PHYSICIAN ORDER Stop: 04/30/23 22:47 Insulin Human Lispro (Insulin Lispro 300 Unit/3 Ml Pen) 0 unit SUBQ Q4H PRN; Protocol PRN Reason: Hyperglycemica Labetalol HCl (Labetalol 20 Mg/4 Ml Syringe) 20 - 80 mg IVP Q10M PRN; Protocol PRN Reason: SBP >160 or DBP >110 Labetalol HCl (Labetalol 20 Mg/4 Ml Syringe) 20 mg IVP .ONCE PRN; Protocol PRN Reason: Step 9 of nifedipine protocol Stop: 04/30/23 22:50 Labetalol HCl (Labetalol 20 Mg/4 Ml Syringe) 40 mg IVP .ONCE PRN; Protocol PRN Reason: Step 9 of hydrALAZine protocol Stop: 04/30/23 22:50 Lidocaine HCl (Lidocaine 1% 20 Ml Mdv) 20 ml ID .ONCE PRN PRN Reason: PERINEAL REPAIR Stop: 04/30/23 22:47 Methylergonovine Maleate (Methylergonovine 0.2 Mg/Ml Vial) 0.2 mg IM .ONCE PRN PRN Reason: Step 2: Hemorrhage protocol Stop: 04/30/23 22:47 Misoprostol (Misoprostol 200 Mcg Tablet) 800 mcg BC .ONCE PRN PRN Reason: Step 3: Hemorrhage protocol Stop: 04/30/23 22:47 Misoprostol (Misoprostol 100 Mcg Tablet) 25 mcg VG Q4H [facility] Last Admin: 04/26/23 05:08 Dose: Not Given Nifedipine (Nifedipine 10 Mg Capsule) 10 - 20 mg PO Q20M PRN; Protocol PRN Reason: SBP >160 or DBP >110 Ondansetron HCl (Ondansetron 4 Mg/2 Ml Vial) 4 mg IVP Q4HR PRN PRN Reason: Nausea / Vomiting Ondansetron HCl (Ondansetron Odt 4 Mg Tablet) 4 mg TL Q4HR PRN PRN Reason: Nausea / Vomiting Oxytocin (Oxytocin 10 Unit/Ml Vial) 10 unit IM .ONCE PRN PRN Reason: Step one: If no IV access Stop: 04/30/23 22:47 Sodium Chloride (Sodium Chloride Flush 0.9% 10 Ml Syringe) 10 ml IVP 0100,0900,1700 [facility] Last Admin: 04/26/23 04:54 Dose: 10 ml Sodium Chloride (Sodium Chloride Flush 0.9% 10 Ml Syringe) 10 ml IVP PRN PRN PRN Reason: NEEDED PER PROVIDER ORDERS Adalimumab [Humira(Cf) Pediatric Crohn's] 80 mg SUBQ 09/03/22 Allergies/Adverse Reactions: Allergies Allergy/AdvReac Type Severity Reaction Status Date / Time No Known Drug Allergies Allergy Verified 09/03/22 19:58 Anes History & Medical History - Anesthetic History Anesthesia Complications: reports: No previous complications Family history of Anesthesia Complications: Denies Family history of Malignant Hyperthermia: Denies - Medical History Cardiovascular: reports: None Gastrointestinal: reports: Crohn's disease Smoking Status: Former smoker Psychosocial: reports: No issues indicated - Surgical History General: reports: Colonoscopy, Other (laparoscopy) Gynecologic: reports: Other (falopian tube removed from ectopic ) - Obstetrical History : 2 Parity: 0 Events: reports: Gestational diabetes, Other (non compliant with medications - 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 also has chron's and is on evaristo) Complications: reports: Gestational diabetes, Other (crohns) Exam General: Alert, Oriented x3, Cooperative Dental: WNL Mouth Openin Fingerbreadth Neck Mobility: Normal Mallampati classification: II Thyromental Distance: 4-6 cm Respiratory: Lungs clear, No respiratory distress Cardiovascular: Regular rate Neurological: Normal speech Mental/Cognitive Status: Alert/Oriented X3, Normal for patient Cognitive Status: Within normal limits Plan Anesthesia Type: Spinal Consent for Procedure(s) Verified and Reviewed: Yes Code Status: Attempt Resuscitation ASA classification: 2-Mild systemic disease Is this case an emergency?: Yes
[2023-04-26] MEDS ORDERED: ONDANSETRON 4 MG/2 ML VIAL IVP PRN (13:31)
[2023-04-26] MEDS ORDERED: METOCLOPRAMIDE 10 MG/2 ML VIAL IVP PRN (13:31)
[2023-04-26] MEDS ORDERED: fentaNYL 100 MCG/2 ML VIAL IVP PRN (13:31)
[2023-04-26] MEDS ORDERED: NALOXONE 0.4 MG/ML VIAL IVP PRN ×2 (13:31→15:58)
[2023-04-26] MEDS ORDERED: MORPHINE 2 MG/ML CARPUJECT IVP PRN (13:31)
[2023-04-26] MEDS ORDERED: HYDROmorphone 0.5 MG/0.5 ML SYRINGE IVP PRN (13:31)
[2023-04-26] MEDS ORDERED: ATROPINE ABBOJECT 1 MG/10 ML SYRINGE IVP PRN (13:31)
[2023-04-26] MEDS ORDERED: ePHEDrine 50 MG/ML VIAL IVP PRN (13:31)
[2023-04-26] MEDS ORDERED: LACTATED RINGERS 1,000 ML IV SCH (14:00)
[2023-04-26] MEDS ORDERED: DEXAMETHASONE 10 MG/ML VIAL ONE (14:00)
[2023-04-26] MEDS ORDERED: ROPIVACAINE 0.5% PF 20 ML VIAL ONE (14:00)
[2023-04-26] MEDS ORDERED: LACTATED RINGERS 1,000 ML IV ONE ×2 (14:30)
--- NOTE | 2023-04-26 15:11 | ANESTHESIA POST OP EVALUATION ---
Anesthesia Post Eval - Post Anesthesia Eval Vitals: Last Vital Signs Temp 36.1 C L 04/26/23 14:48 Pulse 78 04/26/23 14:48 Resp 14 04/26/23 14:48 BP 110/60 04/26/23 14:48 Pulse Ox 100 04/26/23 14:48 O2 Flow Rate CV Function Including HR & BP: Stable Pain Control: Satisfactory Nausea & Vomiting: Negative Mental Status: Baseline Respiratory Status: Airway Patent Hydration Status: Satisfactory Anesthesia Complications: None
[2023-04-26] MEDS ORDERED: NIFEdipine 10 MG CAPSULE PO PRN (15:58)
[2023-04-26] MEDS ORDERED: LABETALOL 20 MG/4 ML SYRINGE IVP PRN ×3 (15:58)
[2023-04-26] MEDS ORDERED: hydrALAZINE INJ 20 MG/ML VIAL IVP PRN ×2 (15:58)
--- NOTE | 2023-04-26 16:03 | OPERATIVE REPORT ---
Operative Report - General Admit Date: 04/25/23 Procedure Date: 04/26/23 Planned Procedure: 1LTCS via pfannensteil incision - Other Other Information/Narrative: OPERATIVE NOTE Pre-operative diagnosis: 1. IUP @ 37+ 2. Poorly controlled GDMA2 3. intolerance to induction Procedure: 1'LTCS via pfannensteil skin incision Post-operative diagnosis: CAMILA Surgeon: Bekah Gun Fitter: Clifford Anesthesia: Spinal Findings: viable male , Apgars 5/9, born at 1341 normal uterus normal tubes & ovaries bilaterally no notable adhesions Complications: None apparent EBL: 350cc UOP: 65cc IVF: 600cc LR Procedure in detail: After risks benefits and alternatives, as well as indication for procedure and anticipated post-operative recovery course, were discussed with the patient informed consent was obtained and patient was taken to the operating theater where spinal anesthesia was administered without difficulty - though they did do this twice, 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 Hall catheter was inserted in normal sterile fashion. Pt was prepared and draped in normal sterile fashion. Anesthesia was tested after the second spinal and found to be adequate. Prior to skin incision pt received recommended antibiotics, surgical time out was performed, and all persons in the operating theater participated in time out and agreed. Pfannensteil skin incision made with scalpel. Carried down to level of fasia with bovie. Fascia incised with bovie and extended. Anterior aspect of rectus sheath dissected off of rectus muscle without difficulty. Peritoneum entered without difficulty and surgical field extended with gentle lateral traction. Lower uterine segment identified, well developed. Uterine incision made with scalpel, uterus entered bluntly and incision extended bluntly. Surgeons right hand entered into lower uterine segment, presenting part elevated to level of incision and infant delivered with vacuum assist. Two pop offs, and successful delivery. Delayed cord clamping x60 seconds. Cord clamped and cut x2, baby handed to awaiting radiologic technology program director, apgars as noted above. Placenta delivered manually. Uterus exteriorized and wrapped in moist lap. Uterine cavity cleaned with moist lap and found to be free of membranes or debris. Uterine incision closed with 0 vicryl, running suture, and subsequently imbricated with the same suture. Incision inspected, hemostatic. Gutters cleaned. Uterus returned to abdominal cavity. All inspected, hemostatic. Peritoneum reapproximated without suture. Muscles inspected, fascia inspected, hemostatic. Fascia closed with 0 looped PDS in running fashion. Subcutaneous tissue irrigated, and then closed with 2.0 vicryl in running fashion. Skin incision closed with subcuticular sutures with 4.0 vicryl. Pt and infant tolerated procedure well. All counts correct. Pt to PACU in stable condition.
[2023-04-26] MEDS: ACETAMINOPHEN 500 MG TABLET PO SCH (17:12)
[2023-04-26] MEDS: KETOROLAC 30 MG/ML VIAL IVP SCH (19:51)
[2023-04-26] MEDS: DOCUSATE SODIUM 100 MG CAPSULE PO SCH (21:40)
[2023-04-27] MEDS: KETOROLAC 30 MG/ML VIAL IVP SCH ×2 (01:50→08:03)
[2023-04-27] MEDS: ACETAMINOPHEN 500 MG TABLET PO SCH ×3 (01:50→17:32)
[2023-04-27] MEDS: oxyCODONE 5 MG TABLET PO PRN ×5 (03:58→21:28)
[2023-04-27 06:22] LABS: HCT - HEMATOCRIT 33.3 % (37.0-47.0); HGB - HEMOGLOBIN 11.3 g/dL (12.0-16.0); MEAN CORPUSCULAR HEMOGLOBIN 29.7 pg (27.0-31.0); MEAN CORPUSCULAR HGB CONC 33.9 g/dL (32.0-36.0); MEAN CORPUSCULAR VOLUME 87.4 fL (81.0-99.0); MEAN PLATELET VOLUME 10.5 fL (7.9-10.8); RED BLOOD COUNT 3.81 10^6/uL (4.20-5.40); RED CELL DISTRIBUTION WIDTH 14.1 % (12.0-15.0); WHITE BLOOD COUNT 18.7 x10^3/uL (4.8-10.8)
[2023-04-27] MEDS: DOCUSATE SODIUM 100 MG CAPSULE PO SCH ×2 (09:21→21:28)
[2023-04-27] MEDS: IBUPROFEN 600 MG TABLET PO SCH ×2 (14:40→21:28)
--- NOTE | 2023-04-27 18:36 | PROVIDER PROGRESS NOTE ---
Subjective - Prog Note Date Prog Note Date: 04/27/23 Prog Note Time: 12:35 - Subjective Pt reports feeling: Improved (tired but doing well. baby breast feeding. would like to shower later today.) Objective - Vital Signs/Intake & Output Reviewed Vital Signs: Yes Vital Signs: Vital Signs x48h Temp Pulse Resp BP Pulse Ox 04/27/23 13:00 97.5 F L 89 16 122/82 H 98 Intake & Output: Intake & Output 04/24/23 04/25/23 04/26/23 04/27/23 23:59 23:59 23:59 23:59 Intake Total 3008.333 2060 Output Total 2800 2501 Balance 208.333 -441 - Objective General Appearance: positive: No acute distress - Lab Results Fish Bones: 04/27/23 06:12 Other Labs: Lab Results x24hrs 04/27/23 Range/Units 06:12 WBC 18.7 H (4.8-10.8) x10^3/uL RBC 3.81 L (4.20-5.40) 10^6/uL Hgb 11.3 L (12.0-16.0) g/dL Hct 33.3 L (37.0-47.0) % MCV 87.4 (81.0-99.0) fL MCH 29.7 (27.0-31.0) pg MCHC 33.9 (32.0-36.0) g/dL RDW 14.1 (12.0-15.0) % Plt Count 268 (130-450) 10^3/uL MPV 10.5 (7.9-10.8) fL Assessment/Plan - Problem List (1) Delivery by section Impression: doing well post op. can get up to bathroom later today and take shower. if she is great, can go home tomorrow if she feels ready otherwise on Tuesday. no concerns.
[2023-04-27] MEDS: SODIUM CHLORIDE FLUSH 0.9% 10 ML SYRINGE IVP SCH ×2 (21:20→21:21)
[2023-04-27] MEDS: LACTATED RINGERS 1,000 ML IV SCH (21:24)
[2023-04-28] MEDS ORDERED: oxyCODONE 5 MG TABLET PO ONE (00:18)
[2023-04-28] MEDS: ACETAMINOPHEN 500 MG TABLET PO SCH ×2 (01:39→09:38)
[2023-04-28] MEDS: oxyCODONE 5 MG TABLET PO PRN ×3 (01:40→13:51)
[2023-04-28] MEDS: IBUPROFEN 600 MG TABLET PO SCH ×3 (03:31→15:53)
[2023-04-28 09:03] VITALS: BP 112/67; O2SAT 99
[2023-04-28] MEDS: DOCUSATE SODIUM 100 MG CAPSULE PO SCH (09:38)
[2023-04-28] MEDS ORDERED: CALCIUM CARBONATE CHEW 500 MG TABLET PO SCH (11:00)
--- NOTE | 2023-04-28 16:19 | DISCHARGE SUMMARY ---
"Discharge Summary Admit Date: 04/25/23 Discharge Date: 04/28/23 Discharging Provider: javon Primary Care Provider: javon Code Status: Attempt Resuscitation Condition at Discharge: Good Discharge Disposition: 01 Home, Self Care - DIAGNOSES Admission Diagnoses: IUP at term GDMA2 poorly controlled Discharge Diagnoses with Status of Each Condition: IUP at term - resolved GDMA2 - resolved, will need re-testing 6w post intolerance to induction - resolved by C/S post op state - all milestones met, OK to D/C home. - HPI History of Present Illness: patient reports doing well today. Pt well, lochia appropriate, garrett PO, + void, + flat, + ambulation Feeding going well -- breast & bottle Pt reports ready to go home, has safe home to return to Reviewed: discharge instructions, post- & post-operative instructions, follow up instructions, precautions, precautions regarding: feeding, depression, bleeding, and anticipated post- course All questions answered Pt verbalized understanding Denies: F/C/N/V/CP/SOB Denies: dizziness, weakness, lightheadedness, difficulty with ambulation, palpitations Denies: ARZATE / visual changes VSS NAD Conjunctiva pink, pale sclera +S1, S2 CTAB Breasts soft, not engorged, no nipple cracking Abd soft, NT, ND Fundus firm below umbilicus INC CDI with sutures Perineum intact, bleeding appropriate Ext: neg CCE - CONSULTS | PROCEDURES Procedures: IOL with misprostol x1 1LTCS via pfannensteil incision - for details regarding surgery please see separate operative report. post op and post care - HOSPITAL COURSE Hospital Course: pt admitted for IOL IOL with miso x1 NRFHT x2 decision to proceed with C/S 2'2 intolerance to contractions and remote from delivery. routine post op / post care - ALLERGIES Allergies/Adverse Reactions: Allergies Allergy/AdvReac Type Severity Reaction Status Date / Time No Known Drug Allergies Allergy Verified 09/03/22 19:58 - MEDICATIONS Home Medications: Ambulatory Orders Medication Instructions Recorded Confirmed Adalimumab [Humira(Cf) Pediatric 80 mg SUBQ 09/03/22 Crohn's] - LABS Result Diagrams: 04/27/23 06:12 - QUALITY (Female Hip Fx Only) Was patient sent home on osteoporosis medication?: No - FOLLOW UP Follow Up: [facility] - TIME SPENT Time Spent in Discharge (Minutes): 30"
--- NOTE | 2023-04-28 16:31 | Discharge Plan ---
Discharge Plan Problem Reviewed?: Yes Disposition: Home, Self Care Condition: Good Prescriptions: oxyCODONE [Roxicodone] 5 mg PO Q4HR PRN #14 tab PRN Reason: Severe Pain 6 -10 Docusate Sodium 100Mg Capsule [Colace 100Mg Capsule] 200 mg PO BID #60 cap Acetaminophen [Tylenol] 1,000 mg PO Q8H #60 tab Diet: Regular Activity Restrictions: No Restrictions Shower Restrictions: No Driving Restrictions: Yes (not when on oxycodone pain meds) Instruction Topics: , Depression , Childbirth Breast Care Health Concerns: routine post op routine post routine Plan of Treatment: routine post op routine post routine Care Goals: routine post op routine post routine Assessment: doing well ok for D/C with baby well supported mother No Smoking: If you smoke, Please STOP! Call for help. Follow-up with: Janusz Godfrey MD [Provider Admit Priv/Credential] -
--- NOTE | 2023-04-28 16:39 | Labor Flowsheet ---
Labor Flowsheet Datetime Report Generated by CPN: 04/28/2023 16:39 Datetime: 04/26/2023 12:50 Communication Comments: Pt transferred to OR via bed Datetime: 04/26/2023 12:46 Monitor Interventions for FHR: Ultrasound Adjusted Patient Care Comments: Monitors turned off, pt. taken to OR for primary c-secition d/t intole ulises of induction Datetime: 04/26/2023 12:45 Comments: Tracing Mom's HR Datetime: 04/26/2023 12:29 Frequency (min): 2-4 Quality: Moderate Duration (sec): 60-70 Pattern: Normal: <= 5 Contractions in 10 Minutes Resting Tone (Palpate): Relaxed ASSESSMENT A Monitor Mode: Telemetry FHR Baseline Rate : 125 Variability: Moderate 6-25 bpm Accelerations: 15X15 Decelerations: None Category: Category I Datetime: 04/26/2023 11:56 ANESTHESIA Anesthesia Comments: DORMITORY SUPERVISOR Aube notified of decision for C/s Datetime: 04/26/2023 10:00 UTERINE ACTIVITY Monitor Mode: External Datetime: 04/26/2023 09:59 COMMUNICATION Communication: Provider at Bedside Datetime: 04/26/2023 09:50 VAGINAL EXAM Dilatation (cm): 3.0 Effacement (%): 50 Station: -3 Exam by: Dr. Bekah Cervix, Consistency: Moderate Cervix, Position: Posterior Vaginal Exam Comments: posterior Datetime: 04/26/2023 09:39 PATIENT CARE IV/Blood Work: IV Bag Number @ 2 Datetime: 04/26/2023 09:15 Contraction Comments: pt. states 2/3/10 on pain scale Datetime: 04/26/2023 08:53 VITAL SIGNS NBP Sys/Jessica/Mean (mmHg): 118 : 80 : 88 Pulse: 102 LaborFlag: Labor Datetime: 04/26/2023 07:41 I/O Interventions: Up to BR Datetime: 04/26/2023 06:30 Monitor Interventions for UA: [place] Adjusted Datetime: 04/26/2023 05:30 FHR Baseline Changes: No Baseline Change Datetime: 04/26/2023 04:44 Vaginal Bleeding: None Datetime: 04/26/2023 03:35 Provider Notified (Name): Dr. Bekah Datetime: 04/26/2023 03:34 Patient Position/Activity: Right Lateral Datetime: 04/26/2023 00:08 MEDICATIONS Cervical Ripening Agents: Cytotec @ Datetime: 04/25/2023 21:40 Stage of : Labor Datetime: 04/21/2023 09:24 SpO2 (%): 98
== END 2023-04-28 16:38 | disposition home or self-care (01) | DRG 787 ==
LOC: WFO 21:35 → FBP 21:37 → WFO 23:07
PROVIDERS: ADMIT Obstetrics & Gynecology; ATTEND Obstetrics & Gynecology
PROC: 3E0DXGC Introduction of Other Therapeutic Substance into Mouth and Pharynx, External Approach (ICD-10-PCS; 2023-04-25)
PROC: 0UB00ZZ Excision of Right Ovary, Open Approach (ICD-10-PCS; 2023-04-26)
PROC: 10D00Z1 Extraction of Products of Conception, Low, Open Approach (ICD-10-PCS; principal; 2023-04-26 13:00)
DX: O24.425 Gestational diabetes mellitus in childbirth, controlled by oral hypoglycemic drugs (principal); K50.90 Crohn's disease, unspecified, without complications; O99.62 Diseases of the digestive system complicating childbirth; O99.824 Streptococcus B carrier state complicating childbirth; O76 Abnormality in fetal heart rate and rhythm complicating labor and delivery; Z3A.37 37 weeks gestation of pregnancy; Z37.0 Single live birth; T38.3X6A Underdosing of insulin and oral hypoglycemic [antidiabetic] drugs, initial encounter; Z91.128 Patient's intentional underdosing of medication regimen for other reason; O99.892 Other specified diseases and conditions complicating childbirth; D27.0 Benign neoplasm of right ovary; O99.214 Obesity complicating childbirth; N80.101 Endometriosis of right ovary, unspecified depth
CPT/HCPCS: 36415; 83036; 85025; 85027; 86850; 86900; 86901; A9270; J2274; J2795; J7120

== ENCOUNTER 2023-08-09 15:15 | Outpatient (CLI) | payer OTHER | END 2023-08-09 15:30 | disposition home or self-care (01) | LOC: LAB.N 15:15 | PROVIDERS: ATTEND Nurse Practitioner | DX: N39.0 Urinary tract infection, site not specified (principal) | CPT/HCPCS: 87086 ==